=== PATIENT | female | born 1975 | race Caucasian/White ===

== ENCOUNTER 2016-10-13 00:19 | Emergency (ER) | payer OTHER ==
[~2016-10-13] VITALS: Ht 162.6 cm; Wt 119.0 kg
[2016-10-13 00:31] VITALS: Ht 162.6 cm; Wt 119.0 kg
[2016-10-13] MEDS ORDERED: IBUP200C PO (03:51)
[2016-10-13] MEDS ORDERED: PSEU120T68 PO (03:51)
--- NOTE | 2016-10-13 03:53 | ERD ---
ER Documentation Chief Complaint Date/Time DATE: 10/13/16 TIME: 03:53 Chief Complaint R side neck pain for a week HPI 41-year-old previously healthy female presenting with right-sided anterior neck pain for the past 2 weeks. She states that she was recently diagnosed with a sinus infection and treated with a Z-Vini with improvement of her symptoms. However she continues to have some right-sided anterior neck pain that seems to be more external rather than internal. She also complains of postnasal drip. She denies any fevers, chills, shortness of breath, cough, facial pain, vision disturbance, focal weakness or numbness. She has no difficulty or pain with swallowing. ROS All systems reviewed and are negative except as per history of present illness. Medications Home Meds Reported Medications Pseudoephedrine Hcl* (Pseudoephedrine* ER) 120 Mg Tablet.er, 120 MG PO BID Y for CONGESTION, TAB.SA 10/13/16 Ibuprofen* (Ibuprofen*) 200 Mg Capsule, 400 MG PO Q6, CAP 10/13/16 Allergies Allergies: Coded Allergies: No Known Allergy (Unverified , 10/13/16) PMhx/Soc Medical and Surgical Hx: pt denies Medical Hx, pt denies Surgical Hx Hx Alcohol Use: No Hx Substance Use: No Hx Tobacco Use: No Smoking Status: Never smoker FmHx Family History: No diabetes Physical Exam Vitals Vital Signs Date Time Temp Pulse Resp B/P Pulse Ox O2 Delivery O2 Flow Rate FiO2 10/13/16 03:57 89 18 180/96 99 Room Air 10/13/16 00:31 98.3 64 20 209/109 100 Physical Exam Const: Well-appearing, no distress Head: Atraumatic Eyes: Normal Conjunctiva, PERRLA, EOMI ENT: Normal External Ears, Nose and Mouth. Posterior oropharynx normal with no peritonsillar swelling or uvular deviation. No tonsillar exudate or erythema. No drooling or stridor Neck: Full range of motion. No cervical lymphadenopathy. No swelling. No JVD. No meningismus. Resp: Clear to auscultation bilaterally Cardio: Regular rate and rhythm, no murmurs Abd: Soft, non tender, non distended. Normal bowel sounds Skin: No petechiae or rashes Back: No midline or flank tenderness Ext: No cyanosis, or edema Neur: Awake and alert, cranial nerves intact, moving all extremities, normal gait Psych: Normal Mood and Affect Procedures/MDM Patient is presenting with right-sided anterior neck pain with no significant findings on exam. She is afebrile without any evidence of sepsis. I have a low suspicion for peritonsillar or retropharyngeal abscess or deep space infection. I do not suspect foreign body. I reassured the patient and advised she follow-up with her doctor in the next 2 days if her symptoms persist. Return precautions were given. Patient's blood pressure was elevated (>120/80) but appears stable without evidence of hypertension emergency or urgency. The patient was counseled about the risks of hypertension and urged to pursue outpatient monitoring and therapy within a week with their primary care physician. Departure Diagnosis: Primary Impression: Anterior neck pain Additional Impression: Hypertension Hypertension type: unspecified secondary hypertension Qualified Code: I15.9 - Secondary hypertension Condition: Stable Patient Instructions: High Blood Pressure (Hypertension), Neck Pain, No Trauma Additional Instructions: Follow-up with your primary care doctor in the next 2 days. Return to the ER for any new or worsening symptoms. GUSTABO STEWART MD Oct 13, 2016 03:53
[2016-10-13 03:57] VITALS: BP 180/96; PULSE 89; RESP 18
== END 2016-10-13 04:03 | disposition home or self-care (01) ==
LOC: E/R 00:19
DX: M54.2 Cervicalgia (principal); I15.9 Secondary hypertension, unspecified
CPT/HCPCS: 99282